=== PATIENT | female | born 1935 | race Caucasian/White ===

== ENCOUNTER 2016-05-04 13:03 | Emergency (ER) | payer OTHER ==
[~2016-05-04] VITALS: Ht 160 cm; Wt 65.8 kg
[~2016-05-04 13:03] MED LIST: ADULT LOW DOSE81 M1 PO; LEVOTHYROXINE75 MCG PO; LUMIGAN 0.01% EYE DR OP; QUINAPRIL HCL40 MG PO
[2016-05-04 13:40] LABS: HEMATOCRIT 35.5 % (36.0-46.0); MCH 33.7 PG (29.0-34.0); MCHC 33.8 G/DL (30.0-36.0); MCV 99.7 FL (83-99); RBC DIS.WIDTH-SD 44.6 % (39-53); RED BLOOD COUNT 3.56 M/uL (3.80-5.20); WHITE BLOOD COUNT 7.3 K/uL (4.1-10.2)
[2016-05-04 13:48] LABS: CHLORIDE 106 mEq/L (99-109); POTASSIUM 4.1 mEq/L (3.7-5.4); SODIUM 137 mEq/L (136-147)
[2016-05-04 13:49] LABS: GLUCOSE 94 mg/dL (70-99)
[2016-05-04 13:51] LABS: ANION GAP 14 MEQ/L (2-14)
[2016-05-04 13:53] LABS: GFR ESTIMATE (CALCULATED) 51 mL/min/
[2016-05-04 13:54] LABS: UREA NITROGEN (BUN) 18 mg/dL (9-23)
[2016-05-04 14:00] LABS: TROP-I INTERPRETATION NEGATIVE; TROPONIN-I < 0.01 ng/mL (0.0-0.30)
[2016-05-04 14:37] VITALS: BP 159/78
[2016-05-04 15:19] LABS: PLATELET COUNT 168 K/uL (156-360)
== END 2016-05-04 14:39 | disposition home or self-care (01) ==
LOC: EME 13:03
PROVIDERS: Nurse Practitioner Family
DX: S01.01XA Laceration without foreign body of scalp, initial encounter (principal); W18.39XA Other fall on same level, initial encounter; Y92.248 Other public administrative building as the place of occurrence of the external cause; I10 Essential (primary) hypertension; E78.5 Hyperlipidemia, unspecified; E03.9 Hypothyroidism, unspecified; M19.90 Unspecified osteoarthritis, unspecified site; D64.9 Anemia, unspecified; Z23 Encounter for immunization
CPT/HCPCS: 70450; 80048; 84484; 85027; 93005; 99281; 99284

== ENCOUNTER 2017-07-13 02:52 | Observation (INO) | payer OTHER ==
[~2017-07-13] VITALS: Ht 160 cm; Wt 63.6 kg
[2017-07-13 03:21] LABS: HEMATOCRIT 31.4 % (36.0-46.0); HEMOGLOBIN 10.6 G/DL (11.9-15.5); MCH 34.1 PG (29.0-34.0); MCHC 33.8 G/DL (30.0-36.0); PLATELET COUNT 116 K/uL (156-360); RBC DIS.WIDTH-CV 12.5 % (11.8-14.6); RBC DIS.WIDTH-SD 46.6 % (39-53); RED BLOOD COUNT 3.11 M/uL (3.80-5.20); WHITE BLOOD COUNT 5.6 K/uL (4.1-10.2)
[2017-07-13 03:32] LABS: CHLORIDE 110 mEq/L (99-109); POTASSIUM 4.6 mEq/L (3.7-5.4); SODIUM 134 mEq/L (136-147)
[2017-07-13 03:33] LABS: GLUCOSE 92 mg/dL (70-99)
[2017-07-13 03:37] LABS: CREATININE 1.3 mg/dL (0.6-1.3); GFR ESTIMATE (CALCULATED) 42 mL/min/
[2017-07-13 03:38] LABS: UREA NITROGEN (BUN) 32 mg/dL (9-23)
[2017-07-13 03:46] LABS: TROP-I INTERPRETATION NEGATIVE; TROPONIN-I < 0.01 ng/mL (0.0-0.30)
[2017-07-13] MEDS ORDERED: NORVASC5 MG PO (08:57)
[2017-07-13] MEDS ORDERED: ZESTRIL10 MG PO (08:57)
[2017-07-13] MEDS ORDERED: ALPRAZOLAM0.25 M2 PO (08:57)
[2017-07-13] MEDS ORDERED: XALATAN2.5 ML BOTH EYES (08:58)
[2017-07-13] MEDS ORDERED: CALCIUM 500 +1 EAC5 PO (08:58)
[2017-07-13] MEDS ORDERED: CENTRUM SILVER1 EAC4 PO (08:58)
[2017-07-13] MEDS ORDERED: FISH OIL 1,0001 EAC7 PO (08:58)
[2017-07-13 10:00] LABS: TROP-I INTERPRETATION NEGATIVE; TROPONIN-I < 0.01 ng/mL (0.0-0.30)
[2017-07-13 10:15] LABS: IRON 37 MCG/DL (35-150); TRANSFERRIN (TIBC) 219.1 mg/dL (215-380); TRANSFERRIN SATUR. 17 % (20-55)
[2017-07-13 10:30] LABS: FERRITIN 46 NG/ML (10-291)
[2017-07-13 10:58] LABS: FOLIC ACID (FOLATE) > 22.0 NG/ML (5.0-22.0)
[2017-07-13 15:10] VITALS: BP 171/71
[2017-07-13 15:31] LABS: TROP-I INTERPRETATION NEGATIVE; TROPONIN-I < 0.01 ng/mL (0.0-0.30)
[2017-07-13 19:12] VITALS: BP 127/59
[2017-07-14 00:15] VITALS: BP 140/62
[2017-07-14 04:44] VITALS: BP 136/60
[2017-07-14 05:26] LABS: HEMOGLOBIN 10.8 G/DL (11.9-15.5); MCH 34.3 PG (29.0-34.0); MCHC 33.8 G/DL (30.0-36.0); MCV 101.6 FL (83-99); PLATELET COUNT 121 K/uL (156-360); RBC DIS.WIDTH-CV 12.5 % (11.8-14.6); RBC DIS.WIDTH-SD 46.6 % (39-53); RED BLOOD COUNT 3.15 M/uL (3.80-5.20); WHITE BLOOD COUNT 6.1 K/uL (4.1-10.2)
[2017-07-14 05:58] LABS: CHLORIDE 111 MEQ/L (99-109); CREATININE 1.1 MG/DL (0.6-1.3); GFR ESTIMATE (CALCULATED) 51 mL/min/; GLUCOSE 90 mg/dL (70-99); POTASSIUM 4.7 MEQ/L (3.7-5.4); SODIUM 138 MEQ/L (136-147); UREA NITROGEN (BUN) 28 mg/dL (9-23)
[2017-07-14 07:01] VITALS: BP 108/49
[2017-07-14 09:17] VITALS: BP 123/59
[2017-07-14 11:32] VITALS: BP 116/57
[2017-07-14] MEDS ORDERED: NITROSTAT0.4 MG SL (14:02)
[2017-07-14] MEDS ORDERED: ASPIR-LOW81 MG PO (14:03)
== END 2017-07-14 15:16 | disposition home or self-care (01) ==
LOC: EME → EDBD 02:52 → EDOF 09:16 → ENRESERV 09:32 → 4SOUTH 14:40
PROVIDERS: Physician Assistant
DX: R07.9 Chest pain, unspecified (principal); E86.0 Dehydration; E03.9 Hypothyroidism, unspecified; D53.9 Nutritional anemia, unspecified; I10 Essential (primary) hypertension; D69.6 Thrombocytopenia, unspecified; D68.9 Coagulation defect, unspecified; D68.8 Other specified coagulation defects; I44.7 Left bundle-branch block, unspecified; Z79.82 Long term (current) use of aspirin
CPT/HCPCS: 71046; 71275; 80048; 82607; 82728; 82746; 83540; 83880; 84466; 84484; 85027; 85379; 93005; 99281; 99285; G0378; J7030; S0028

== ENCOUNTER 2017-08-01 19:22 | Emergency (ER) | payer OTHER ==
[~2017-08-01] VITALS: Ht 160 cm; Wt 65.5 kg
[~2017-08-01 19:22] MED LIST changes: +ALPRAZOLAM0.25 M2 PO; +ASPIR-LOW81 MG PO; +CALCIUM 500 +1 EAC5 PO; +CENTRUM SILVER1 EAC4 PO; +FISH OIL 1,0001 EAC7 PO; +NITROSTAT0.4 MG SL; +NORVASC5 MG PO; +XALATAN2.5 ML BOTH EYES; +ZESTRIL10 MG PO
[2017-08-01 20:20] LABS: HEMATOCRIT 28.6 % (36.0-46.0); HEMOGLOBIN 10.1 G/DL (11.9-15.5); MCH 34.8 PG (29.0-34.0); MCHC 35.3 G/DL (30.0-36.0); MCV 98.6 FL (83-99); PLATELET COUNT 135 K/uL (156-360); RBC DIS.WIDTH-CV 12.4 % (11.8-14.6); RBC DIS.WIDTH-SD 45.1 % (39-53); WHITE BLOOD COUNT 8.6 K/uL (4.1-10.2)
[2017-08-01 20:33] LABS: ALBUMIN 3.8 g/dL (3.2-4.8)
[2017-08-01 20:34] LABS: CHLORIDE 98 mEq/L (99-109); POTASSIUM 5.1 mEq/L (3.7-5.4); SODIUM 127 mEq/L (136-147)
[2017-08-01 20:35] LABS: GLUCOSE 102 mg/dL (70-99); TOTAL PROTEIN 7.2 g/dL (6.4-8.3)
[2017-08-01 20:37] LABS: TOTAL BILIRUBIN 0.6 mg/dL (0.0-1.0)
[2017-08-01 20:39] LABS: ALKALINE PHOSPHATASE 138 IU/L (3-129); CREATININE 1.5 mg/dL (0.6-1.3); GFR ESTIMATE (CALCULATED) 35 mL/min/
[2017-08-01 20:40] LABS: UREA NITROGEN (BUN) 18 mg/dL (9-23)
[2017-08-01 20:41] LABS: AST (GOT) 32 IU/L (2-34); PTT 26.5 SEC (25-37)
[2017-08-01 20:42] LABS: ALT (GPT) 25 IU/L (3-49)
[2017-08-01 21:29] LABS: INTER. NORMALIZED RATIO 1.1
[2017-08-01] MEDS ORDERED: ELIQUIS5 MG PO (21:46)
[2017-08-01 23:30] VITALS: BP 153/82
== END 2017-08-01 23:31 | disposition home or self-care (01) ==
LOC: EME 19:22
DX: I82.422 Acute embolism and thrombosis of left iliac vein (principal); I82.412 Acute embolism and thrombosis of left femoral vein; I10 Essential (primary) hypertension; E78.5 Hyperlipidemia, unspecified; E03.9 Hypothyroidism, unspecified
CPT/HCPCS: 80053; 85027; 85610; 85730; 99281; 99283